=== PATIENT | male | born 1995 | race Caucasian/White ===

== ENCOUNTER 2022-12-30 17:56 | Emergency (ER) | payer MEDICAID, OTHER ==
[2022-12-30 18:12] VITALS: BP 159/95; O2SAT 100
--- NOTE | 2022-12-30 19:59 | ED Physician Documentation ---
PD HPI OPHTHO - Stated complaint Stated Complaint: BLURRY VISION - Chief complaint Chief Complaint: Heent - History obtained from History obtained from: Patient - History of Present Illness Timing - onset: Other (1 year ago) Timing - duration: Years (1) Timing - details: Gradual onset Pain level max: 0 Pain level now: 0 Associated symptoms: No: Redness, Swelling, Tearing, Discharge, Matting, FB sensation - Additional information Additional information: 27-year-old male with gradually decreasing vision over the past 1 year, especially in the right eye. The left eye is starting to have decreased vision as well. No redness, swelling or drainage. No foreign body sensation. No trauma. He does have a history of eczema. Not on any chronic medications. Review of Systems Constitutional: denies: Fever, Chills GI: denies: Vomiting, Diarrhea Skin: denies: Rash Musculoskeletal: denies: Neck pain, Back pain Neurologic: denies: Headache PD PAST MEDICAL HISTORY - Past Medical History Cardiovascular: None Respiratory: Asthma Endocrine/Autoimmune: None Derm: Eczema - Past Surgical History Past Surgical History: No - Present Medications Home Medications: Ambulatory Orders Medication Instructions Recorded Confirmed Albuterol Sulfate [Proair Hfa 2 puffs IH QID #1 hfa.aer.ad 02/14/15 Inhaler] Betamethasone/Propylene Glyc 1 applic TOP DAILY PRN 02/14/15 02/14/15 [Betamethasone Dp Aug 0.05% Crm] predniSONE [Deltasone] 60 mg PO DAILY 5 Days tablet 02/14/15 Albuterol Sulfate [Proair Hfa 2 puffs INH Q4H PRN #1 inhaler 12/16/15 Inhaler] predniSONE [Deltasone] 60 mg PO DAILY 5 Days tablet 12/16/15 - Allergies Allergies/Adverse Reactions: Allergies Allergy/AdvReac Type Severity Reaction Status Date / Time egg Allergy Respiratory Verified 02/14/15 03:59 shellfish derived Allergy Respiratory Verified 02/14/15 03:59 - Social History Does the pt smoke?: No Smoking Status: Never smoker Does the pt drink ETOH?: No Does the pt have substance abuse?: No - Immunizations Immunizations: TDAP >10years/unknown PD ED PE NORMAL - Vitals Vital signs reviewed: Yes - General General: Alert and oriented X 3, No acute distress - HEENT HEENT: Moist mucous membranes, Other (The right eye is normal except for significant opacification of the cornea. Unable to visualize the fundus. There is slight opacification of the left cornea. Otherwise normal exam.) - Neck Neck: Supple, no meningeal sign - Derm Derm: Warm and dry - Neuro Neuro: Alert and oriented X 3 - Psych Psych: Normal mood, Normal affect Results - Vitals Vitals: Vital Signs - 24 hr 12/30/22 18:06 Temperature 37.4 C Heart Rate 77 Respiratory 16 Rate Blood Pressure 159/95 H O2 Saturation 100 Oxygen O2 Source Room air - Labs Labs: Laboratory Tests 12/30/22 20:29 POC Whole Bld Glucose 93 PD Medical Decision Making - ED course Complexity details: considered differential, d/w patient ED course: 27-year-old male with what appears to be cataracts of the bilateral eyes, the right is worse than the left. I did discuss the case with Dr. Barrera, ophthalmology who will see the patient in his office. The patient will contact his PCP in the morning to order a rheumatology work-up. His blood sugar is normal here. Patient does not know of any family history of young cataracts. Patient counseled regarding signs and symptoms for which I believe and urgent re-evaluation would be necessary. Patient with good understanding of and agr eement to plan and is comfortable going home at this time This document was made in part using voice recognition software. While efforts are made to proofread this document, sound alike and grammatical errors may occur. Departure - Departure Disposition: 01 Home, Self Care Clinical Impression: Cataract Qualifiers: Cataract type: unspecified Laterality: bilateral Qualified Code(s): H26.9 - Unspecified cataract Condition: Good Instructions: Cataracts Follow-Up: KAROLINE DUMONT ARNP [Primary Care Provider] - Jose Barrera MD [Provider Admit Priv/Credential] - Comments: Please contact your primary care provider tomorrow to order your blood work. It is recommended that you have a full rheumatology work-up performed including DOMINIQUE, rheumatoid factor, lupus work-up, connective tissue disorder work-up. Thyroid and parathyroid to be checked as well. Please contact Dr. Barrera's office in the morning for an evaluation. Please return if you worsen. Forms: PCP List Discharge Date/Time: 12/30/22 20:36
== END 2022-12-30 20:36 | disposition home or self-care (01) ==
LOC: ED 17:56
DX: H26.9 Unspecified cataract (principal)
CPT/HCPCS: 99282; 99283

== ENCOUNTER 2023-04-17 08:57 | Day surgery (SDC) | payer BC ==
[2023-04-17] MEDS: KETOROLAC 0.45% OPHTH DROPS ONE (08:53)
[2023-04-17] MEDS: PHENYLEPHRINE 2.5% OPHTH 2 ML DROPS ONE (08:53)
[2023-04-17] MEDS: PROPARACAINE 0.5% OPHTH DROPS 15 ML ONE (08:54)
[2023-04-17] MEDS: LACTATED RINGERS 1,000 ML IV ONE ×2 (09:05→12:19)
[2023-04-17 09:17] VITALS: O2SAT 100
--- NOTE | 2023-04-17 11:04 | ANESTHESIA ---
Pre-Anesthesia VS, & Labs - Diagnosis RIGHT CATARACT - Procedure PE IOL OD Vital Signs: Temp Pulse Resp BP Pulse Ox O2 Flow Rate 36.8 C 69 18 136/108 H 100 04/17/23 09:05 04/17/23 09:05 04/17/23 09:05 04/17/23 09:05 04/17/23 09:05 Height: 5 ft 7 in Weight (kg): 56.6 kg Body Mass Index: 19.5 BMI Classification: Normal - NPO Last Fluid Intake: 0700 Home Medications and Allergies Home Medications: Ambulatory Orders hydrOXYzine HCL [Hydroxyzine HCl] 10 mg PO PRN PRN 04/17/23 hydrOXYzine HCL [Hydroxyzine HCl] 10 mg PO PRN PRN 04/17/23 Allergies/Adverse Reactions: Allergies Allergy/AdvReac Type Severity Reaction Status Date / Time egg Allergy Respiratory Verified 02/14/15 03:59 peanut Allergy Edema Verified 04/17/23 09:30 shellfish derived Allergy Respiratory Verified 02/14/15 03:59 Anes History & Medical History - Anesthetic History Anesthesia Complications: reports: No previous complications (NEVER HAD ANESTHESIA) Family history of Anesthesia Complications: Denies Family history of Malignant Hyperthermia: Denies - Medical History Cardiovascular: reports: None Pulmonary: reports: Asthma (HE SAYS ITS MILD, NO INHALERS) Gastrointestinal: reports: None Urinary: reports: None Musculoskeletal: reports: None Endocrine/Autoimmune: reports: None Skin: reports: Eczema Smoking Status: Never smoker (VAPES) Psychosocial: reports: Alcohol (OCCASIONAL) Exam General: Alert Mouth Openin Fingerbreadth Neck Mobility: Normal Mallampati classification: II Thyromental Distance: less than 4 cm Plan Anesthesia Type: MAC Consent for Procedure(s) Verified and Reviewed: Yes Code Status: Attempt Resuscitation ASA classification: 2-Mild systemic disease Is this case an emergency?: No
[2023-04-17] MEDS ORDERED: fentaNYL 100 MCG/2 ML VIAL ONE (11:19)
[2023-04-17] MEDS ORDERED: MIDAZOLAM 2 MG/2 ML VIAL ONE (11:19)
[2023-04-17] MEDS ORDERED: BRIMONIDINE 0.2% OPHTH DROPS 5 ML ONE (11:30)
[2023-04-17] MEDS ORDERED: BSS/LIDOCAINE/EPINEPHRINE 1 ML VIAL ONE (11:30)
[2023-04-17] MEDS ORDERED: TRIAMCIN/MOXIFLOX OPHTHALMIC 0.6 ML VIAL IO ONE (11:30)
[2023-04-17] MEDS ORDERED: TIMOLOL 0.5% OPHTH DROPS ONE (11:30)
[2023-04-17] MEDS ORDERED: EPINEPHrine 1 MG/ML AMP ONE (11:30)
[2023-04-17] MEDS ORDERED: TRYPAN BLUE 0.5 ML SYRINGE IO ONE (11:34)
[2023-04-17] MEDS: TRYPAN BLUE 0.5 ML SYRINGE IO ONE (11:35)
[2023-04-17] MEDS: BRIMONIDINE 0.2% OPHTH DROPS 5 ML OPTH ONE (11:36)
[2023-04-17] MEDS: EPINEPHrine 1 MG/ML AMP IR ONE (11:36)
[2023-04-17] MEDS: TIMOLOL 0.5% OPHTH DROPS OPTH ONE (11:36)
[2023-04-17] MEDS: PROPARACAINE 0.5% OPHTH DROPS 15 ML EACHEYE ONE (11:37)
[2023-04-17] MEDS: TRIAMCIN/MOXIFLOX OPHTHALMIC 0.6 ML VIAL IO ONE (11:37)
[2023-04-17] MEDS: BSS/LIDOCAINE/EPINEPHRINE 1 ML SYRINGE IO ONE (11:37)
--- NOTE | 2023-04-17 12:28 | OPERATIVE REPORT ---
Operative Report - Other Other Information/Narrative: Date of Surgery: 04/17/23 Preop Dx: Complex, visually significant cataract right eye. Complex due to no red reflex requiring use of Trypan Blue to stain the capsule. This was the first cataract surgery. Postop Dx: Same Procedure: Phacoemulsification with posterior chamber intraocular lens implant right eye Surgeon: Dr. Jose Barrera Anesthesia: Monitored anesthesia care Complications: None Operative Indications: This is a 27-year-old M with progressive vision loss in the right eye due to a mature/white cataract. Best corrected visual acuity was light perception vision with glare to light perception vision in the right eye. Indications for surgery were: - Overall decrease in vision - Difficulty seeing words on a computer screen - Difficulty reading - Difficulty seeing words, closed captions, or game scores on TV - Difficulty seeing street signs - Difficulty driving in low light or at night - Difficulty driving at night because of headlights from other vehicles - Difficulty with glare or bright lights in any situation The patient was consented at length concerning the risks and benefits of cataract surgery after which the patient expressed a desire to proceed with surgery. Operative Procedure: The patient was taken into OR#3 and placed under monitored anesthesia care. A surgical time-out was conducted confirming correct patient, correct procedure, and correct surgical site. The patient was given topical anesthesia and then prepped and draped in the usual sterile fashion. The eye was entered at the 6 and 3 oclock positions. Intracameral Shugarcaine was injected into the anterior chamber followed by an air bubble under which Trypan Blue was injected to stain the anterior capsule. A dispersive viscoelastic was then used to fill the anterior chamber and flush out the Trypan Blue material. The capsule was very thin and friable. Upon puncturing the capsule a milky liquid expressed from behind the capsule and partially flooded the chamber. Viscoelastic was used to flush out the milky material. A dlki-[id number]-zudk curvilinear capsulorhexis was performed with an incomplete radialization nasally. There was no solid nucleus. Stringy and chunky cortex was evacuated using automated infusion and aspiration. A cohesive viscoelastic was injected into the capsular bag and a 25.0 diopter multifocal intraocular lens was inserted into the bag and rotated so that the haptics engaged the superior and inferior capsular sulci (because of the nasal radialization). Infusion and aspiration were used to evacuate the viscoelastic materials from the eye. The wounds were hydrated and the eye inflated to physiologic pressure using balanced salt solution. Approximately 0.25ml of a mixture of triamcinolone and moxifloxacin was injected trans-sclerally into the vitreous in the inferotemporal quadrant using a 30 gauge cannula. An additional 0.55ml of a mixture of triamcinolone, moxifloxacin, and vancomycin was injected subconjunctivally in the superior quadrant for infection and inflammation prophylaxis. Wound integrity was checked with Weck-Gemma sponges. The patient was taken from the operating room in good condition and given post-op instructions.
[2023-04-17 12:34] VITALS: BP 143/94
== END 2023-04-17 08:58 | disposition home or self-care (01) ==
LOC: SDS 08:57
PROVIDERS: ATTEND Ophthalmology
DX: H25.89 Other age-related cataract (principal)
CPT/HCPCS: 66984; A9270; J3490; J7120; V2632

== ENCOUNTER 2023-07-10 09:11 | Day surgery (SDC) | payer BC ==
[2023-07-10] MEDS: PROPARACAINE 0.5% OPHTH DROPS 15 ML ONE (09:15)
[2023-07-10] MEDS: KETOROLAC 0.45% OPHTH DROPS ONE (09:15)
[2023-07-10] MEDS: PHENYLEPHRINE 2.5% OPHTH 2 ML DROPS ONE (09:20)
[2023-07-10] MEDS: LACTATED RINGERS 1,000 ML IV ONE (09:29)
[2023-07-10] MEDS ORDERED: BRIMONIDINE 0.2% OPHTH DROPS 5 ML ONE (10:19)
[2023-07-10] MEDS ORDERED: TRIAMCIN/MOXIFLOX OPHTHALMIC 0.6 ML VIAL IO ONE (10:19)
[2023-07-10] MEDS ORDERED: TIMOLOL 0.5% OPHTH DROPS ONE (10:19)
[2023-07-10] MEDS ORDERED: EPINEPHrine 1 MG/ML AMP ONE (10:19)
[2023-07-10] MEDS ORDERED: BSS/LIDOCAINE/EPINEPHRINE 1 ML VIAL ONE (10:19)
[2023-07-10] MEDS ORDERED: MIDAZOLAM 2 MG/2 ML VIAL ONE (10:25)
[2023-07-10] MEDS: CHONDR SULF/HYALURONATE SYRINGE IO ONE (10:36)
[2023-07-10] MEDS: TIMOLOL 0.5% OPHTH DROPS OPTH ONE (10:36)
[2023-07-10] MEDS: BRIMONIDINE 0.2% OPHTH DROPS 5 ML OPTH ONE (10:36)
[2023-07-10] MEDS: CARBACHOL 0.01% 1.5 ML VIAL IO ONE (10:37)
[2023-07-10] MEDS: PROPARACAINE 0.5% OPHTH DROPS 15 ML RIGHTEYE ONE (10:37)
[2023-07-10] MEDS: TRIAMCINOLONE PF 40 MG/ML VIAL IO ONE (10:37)
[2023-07-10] MEDS ORDERED: fentaNYL 100 MCG/2 ML VIAL ONE (10:39)
[2023-07-10] MEDS ORDERED: ACETYLCHOLINE 20 MG/2 ML KIT IO ONE (10:47)
[2023-07-10] MEDS: ACETYLCHOLINE 20 MG/2 ML KIT IO ONE (10:48)
[2023-07-10] MEDS: LACTATED RINGERS 800 ML IV ONE (11:02)
[2023-07-10 11:24] VITALS: BP 156/107; O2SAT 100
--- NOTE | 2023-07-10 11:24 | OPERATIVE REPORT ---
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 Cataract surgery was performed in the right eye on . Postop Dx: Same Procedure: Intraocular lens implant repositioning to get the IOL haptic covered by capsule,right eye Surgeon: Dr. Jose Barrera Anesthesia: Monitored anesthesia care Complications: None Operative Indications: This is a 27-year-old M with progressive vision loss and increasing intraocular pressure (IOP) following cataract surgery in the right eye in April 2023. Initial post-op vision and pressures were normal but IOP bagan increasing and vision dropped in subsequent exams. Diffuse pigment cells were noted in the anterior chamber and an iris transillumination defect noted inferotemporally causing the haptic to be visible. IOP could be controlled to only 34 (from 56) on two drops and oral acetazolamide. Indications for surgery were: - Overall decrease in vision - High IOP and difficulty controlling IOP The patient was consented at length concerning the risks and benefits of cataract surgery after which the patient expressed a desire to proceed with surgery. Operative Procedure: The patient was taken into OR#3 and placed under monitored anesthesia care. A surgical time-out was conducted confirming correct patient, correct procedure, and correct surgical site. The patient was given topical anesthesia and then prepped and draped in the usual sterile fashion. The eye was entered at the 6 and 3 oclock positions. Intracameral Shugarcaine was injected into the anterior chamber followed by a dispersive viscoelastic. The superior haptic was noted to be covered by capsule. Upon pushing the inferior iris out of the way with a Kuglin hook it was noted that the inferior haptic was out of the bag. Several attempts were made to push the inferior haptic into the bag but it would pop back up every time. Finally the IOL was rotated 90 degrees clockwise but there was not enough anterior capsule temporally (radialization) to cover the haptic, so it was rotated an additional 30 degrees were there appeared to be adequate capsule. The multifocal IOL was then centered in the bag. Infusion and aspiration were used to evacuate the viscoelastic materials from the eye. The wounds were hydrated and the eye inflated to physiologic pressure using balanced salt solution but the main (phaco) wound would not seal. A 10-0 Nylon suture was placed across the wound and and eye pressure held. Approximately 0.25ml of a mixture of triamcinolone and moxifloxacin was injected trans-sclerally into the vitreous in the inferotemporal quadrant using a 30 gauge cannula. An additional 0.25ml of a mixture of triamcinolone and moxifloxacin was injected subconjunctivally in the superior quadrant for infection and inflammation prophylaxis. Wound integrity was checked with Weck- Gemma sponges. The patient was taken from the operating room in good condition and given post-op instructions.
--- NOTE | 2023-07-10 12:55 | ANESTHESIA POST OP EVALUATION ---
Anesthesia Post Eval - Post Anesthesia Eval Vitals: Last Vital Signs Temp 36.8 C 07/10/23 11:02 Pulse 97 07/10/23 11:15 Resp 18 07/10/23 11:15 BP 156/107 H 07/10/23 11:15 Pulse Ox 100 07/10/23 11:15 O2 Flow Rate CV Function Including HR & BP: Stable Pain Control: Satisfactory Nausea & Vomiting: Negative Mental Status: Baseline Respiratory Status: Airway Patent Hydration Status: Satisfactory Anesthesia Complications: None
--- NOTE | 2023-07-16 20:24 | ANESTHESIA ---
Pre-Anesthesia VS, & Labs - Diagnosis RIGHT IOL OUT OF PLACE - Procedure IOL LENS ADJUSTMENT, RIGHT Vital Signs: Temp Pulse Resp BP Pulse Ox O2 Flow Rate 36.8 C 97 18 156/107 H 100 07/10/23 11:02 07/10/23 11:15 07/10/23 11:15 07/10/23 11:15 07/10/23 11:15 Height: 5 ft 7 in Weight (kg): 56.5 kg Body Mass Index: 19.5 BMI Classification: Normal - NPO >8 hours - Lab Results Lab results reviewed: Yes Home Medications and Allergies Home Medications: Ambulatory Orders Brimonidine 0.2% Ophth Drops [Alphagan P 0.2% Ophth Drops] 1 drops OPTH BID 07/10/23 Timolol 0.5% Ophth Drops [Timoptic 0.5% Ophth Drops] 1 drops OPTH BID 07/10/23 acetaZOLAMIDE [Diamox] 500 mg PO BID 07/10/23 Brimonidine 0.2% Ophth Drops [Alphagan P 0.2% Ophth Drops] 1 drops OPTH BID 07/10/23 Timolol 0.5% Ophth Drops [Timoptic 0.5% Ophth Drops] 1 drops OPTH BID 07/10/23 acetaZOLAMIDE [Diamox] 500 mg PO BID 07/10/23 Allergies/Adverse Reactions: Allergies Allergy/AdvReac Type Severity Reaction Status Date / Time egg Allergy Respiratory Verified 07/10/23 09:33 peanut Allergy Edema Verified 07/10/23 09:33 shellfish derived Allergy Respiratory Verified 07/10/23 09:33 Anes History & Medical History - Anesthetic History Anesthesia Complications: reports: No previous complications Family history of Anesthesia Complications: Denies - Medical History Cardiovascular: reports: None Pulmonary: reports: Asthma Gastrointestinal: reports: None Urinary: reports: None Musculoskeletal: reports: None Endocrine/Autoimmune: reports: None Skin: reports: Eczema Smoking Status: Never smoker (VAPES) Psychosocial: reports: No issues indicated - Surgical History Eyes Ears Nose Throat (EENT): reports: Cataracts Results - EKG Results EKG Comparison: Reviewed EKG Exam General: Alert, Oriented x3 Dental: WNL Mouth Openin Fingerbreadth Neck Mobility: Normal Mallampati classification: II Thyromental Distance: 4-6 cm Respiratory: Lungs clear Cardiovascular: Regular rate Plan Anesthesia Type: MAC Consent for Procedure(s) Verified and Reviewed: Yes Code Status: Attempt Resuscitation ASA classification: 2-Mild systemic disease Is this case an emergency?: No
== END 2023-07-10 09:12 | disposition home or self-care (01) ==
LOC: SDS 09:11
PROVIDERS: ATTEND Ophthalmology
DX: T85.22XA Displacement of intraocular lens, initial encounter (principal); H20.21 Lens-induced iridocyclitis, right eye; H40.051 Ocular hypertension, right eye; F17.290 Nicotine dependence, other tobacco product, uncomplicated
CPT/HCPCS: 66825; A9270; J3490; J7120